=== PATIENT | male | born 1965 | race Caucasian/White ===

== ENCOUNTER → 2022-04-28 | Day surgery (SDC) | payer OTHER ==
[~2022-04-28] VITALS: Ht 177.8 cm; Wt 103.4 kg
[~2022-04-28] MED LIST: AMARYL1 M1 PO; CENTRAVITES 501 EACH PO; FISH OIL 1,0001 EAC3 PO; JARDIANCE25 MG PO; METFORMIN HYD1000 MG PO; ZESTRIL10 MG PO
[2022-04-28 09:20] VITALS: BP 144/61
[2022-04-28 10:09] VITALS: BP 115/65
[2022-04-28 10:21] VITALS: BP 115/65
[2022-04-28 10:37] VITALS: BP 117/59
== END | disposition home or self-care (01) ==
LOC: SDC 04-24 02:30
PROVIDERS: ATTEND Specialist
DX: H65.493 Other chronic nonsuppurative otitis media, bilateral (principal); I10 Essential (primary) hypertension; E11.9 Type 2 diabetes mellitus without complications; H69.83 Other specified disorders of Eustachian tube, bilateral